=== PATIENT | female | born 2000 | race Two or more races ===

== ENCOUNTER 2020-12-23 12:55 | Outpatient (REF) | payer OTHER, SELFPAY | END 2020-12-23 12:56 | disposition home or self-care (01) | LOC: HO.LAB 12:55 | PROVIDERS: Visit Provider Internal Medicine | DX: Z20.822 Contact with and (suspected) exposure to COVID-19 (principal) | CPT/HCPCS: 36415; 87635; C9803; U0003; U0005 ==